=== PATIENT | male | born 1945 | race Caucasian/White ===

== ENCOUNTER 2023-09-27 10:35 | Emergency (ER) | payer BC, OTHER ==
[~2023-09-27] VITALS: Ht 167.6 cm; Wt 65.8 kg
[2023-09-27] MEDS ORDERED: AMLO-212 PO (11:59)
[2023-09-27] MEDS ORDERED: DONE10TA44 PO (11:59)
[2023-09-27] MEDS ORDERED: SENN-18 PO (11:59)
[2023-09-27] MEDS ORDERED: CHOL10005 PO (11:59)
[2023-09-27] MEDS ORDERED: FOLI1TAB27 PO (11:59)
[2023-09-27] MEDS ORDERED: OXYC5CAP18 PO (11:59)
[2023-09-27] MEDS ORDERED: UMEC1BLS IH (11:59)
[2023-09-27] MEDS ORDERED: ATOR40TA PO (11:59)
[2023-09-27] MEDS ORDERED: ASPI81TA31 PO (11:59)
[2023-09-27] MEDS ORDERED: MIRA25TA PO (11:59)
[2023-09-27] MEDS ORDERED: BISA10SU61 RC (11:59)
[2023-09-27] MEDS ORDERED: [UNRECOGNIZED DRUG - OTHER] PO (11:59)
[2023-09-27] MEDS ORDERED: PRIM250T32 PO (11:59)
[2023-09-27] MEDS ORDERED: MAG30ORA PO (11:59)
[2023-09-27] MEDS ORDERED: MELA3CAP2 PO (11:59)
[2023-09-27] MEDS ORDERED: TAMS-3 PO (11:59)
[2023-09-27] MEDS ORDERED: BUPR-53 PO (11:59)
[2023-09-27] MEDS ORDERED: ACET325C7 PO (11:59)
[2023-09-27] MEDS ORDERED: POLY17PO4 PO (11:59)
[2023-09-27] MEDS ORDERED: LOPE2CAP40 PO (11:59)
[2023-09-27] MEDS ORDERED: ALPR0.5T8 PO (11:59)
[2023-09-27] MEDS ORDERED: NICO1PAT44 TP (11:59)
[2023-09-27] MEDS ORDERED: MAGN400O6 PO (11:59)
[2023-09-27 14:26] VITALS: BP 130/70; TEMP 98; O2SAT 99
== END 2023-09-27 14:27 | disposition home or self-care (01) ==
LOC: EDBD 10:35 → ER 10:35
DX: Z04.3 Encounter for examination and observation following other accident (principal); R51.9 Headache, unspecified; M54.2 Cervicalgia; W19.XXXA Unspecified fall, initial encounter; Y93.89 Activity, other specified; Y92.89 Other specified places as the place of occurrence of the external cause; Y99.8 Other external cause status
CPT/HCPCS: 70450; 72125; A4606; A4663

== ENCOUNTER 2023-10-25 17:01 | Inpatient (IN) | payer BC ==
[~2023-10-25] VITALS: Ht 160 cm; Wt 49.9 kg
[~2023-10-25 17:01] MED LIST: ACET325C7 PO; ALPR0.5T8 PO; AMLO-212 PO; ASPI81TA31 PO; ATOR40TA PO; BISA10SU61 RC; BUPR-53 PO; CHOL10005 PO; DONE10TA44 PO; FOLI1TAB27 PO; LOPE2CAP40 PO; MAG30ORA PO; MAGN400O6 PO; MELA3CAP2 PO; MIRA25TA PO; NICO1PAT44 TP; OXYC5CAP18 PO; POLY17PO4 PO; PRIM250T32 PO; SENN-18 PO; TAMS-3 PO; UMEC1BLS IH; [UNRECOGNIZED DRUG - OTHER] PO
[2023-10-25] MEDS ORDERED: CEFTAZIDIME 2 G in IV DEXTROSE 5% 100 ML IV ONE (17:15)
[2023-10-25] MEDS ORDERED: DEXAMETHASONE SOD PHOSPHATE 4 MG INJ IV ONE (17:15)
[2023-10-25] MEDS ORDERED: VANCOMYCIN IV 1,000 MG in IV DEXTROSE 5% 250 ML IV ONE (17:15)
[2023-10-25] MEDS ORDERED: UMEC1BLS IH (17:18)
[2023-10-25] MEDS ORDERED: METH2.5T PO (17:18)
[2023-10-25] MEDS ORDERED: PRIM250T32 PO (17:18)
[2023-10-25] MEDS ORDERED: VANCOMYCIN IV 200 ML ONE (17:29)
[2023-10-25] MEDS ORDERED: CEFTAZIDIME 1 G VIAL ONE (17:29)
[2023-10-25] MEDS ORDERED: DEXAMETHASONE SOD PHOSPHATE 10 MG INJ ONE (17:29)
[2023-10-25 17:30] LABS: BASOPHILS # (AUTO) 0.1 K/UL (0.0-0.2); BASOPHILS % (AUTO) 1.3 % (0.0-2.0); EOSINOPHILS % (AUTO) 0.2 % (0.0-7.0); HEMATOCRIT 42.5 % (36.7-47.1); LYMPHOCYTES # (AUTO) 0.1 K/uL (0.8-4.8); LYMPHOCYTES % (AUTO) 1.6 % (20.5-51.5); MEAN CORPUSCULAR HGB CONC 33 g/dL (32.5-36.3); MEAN CORPUSCULAR VOLUME 99.9 fL (73.0-96.2); MONOCYTES # (AUTO) 0.4 K/uL (0.1-1.30); NEUTROPHILS # (AUTO) 7.6 K/uL (1.8-8.9); NEUTROPHILS % (AUTO) 91.9 % (38.5-71.5); PLATELET COUNT (AUTO) 260 K/uL (152-348); RED BLOOD CELL COUNT(AUTO) 4.25 MIL/uL (4.06-5.63); RED CELL DISTRIBUTION WIDTH 15.2 % (12.1-16.2); WHITE BLOOD COUNT (AUTO) 8.2 K/uL (3.6-10.2)
[2023-10-25 17:42] LABS: CARBON DIOXIDE 28 mmol/L (21-32); CHLORIDE 97 mmol/L (98-107); CREATININE 0.8 mg/dL (0.6-1.3); GLUCOSE 97 mg/dL (74-106); POTASSIUM 4.3 mmol/L (3.5-5.1); SODIUM SERUM 134 mmol/L (136-145); UREA NITROGEN, BLOOD 11 mg/dL (7-18)
[2023-10-25 17:44] LABS: CALCIUM 9.1 mg/dL (8.5-10.1)
[2023-10-25 17:52] LABS: ALANINE AMINOTRANSFERASE 14 U/L (16-63); ALBUMIN 3.7 g/dL (3.4-5.0); ALKALINE PHOSPHATASE 185 U/L (50-136); ASPARTATE AMINOTRANSFERASE 17 U/L (15-37); BILIRUBIN,DIRECT < 0.1 mg/dL (0.0-0.2); BILIRUBIN,TOTAL 0.4 mg/dL (0.2-1.0); TOTAL PROTEIN, SERUM 7.7 g/dL (6.4-8.2)
[2023-10-25 17:54] LABS: DIFFERENTIAL COMMENT 1
[2023-10-25] MEDS ORDERED: IV NORMAL SALINE 1000 ML BAG IV ONE (18:15)
[2023-10-25] MEDS ORDERED: REMEDY ESSENTIAL ZINC PASTE 113 GM TP PRN (19:45)
[2023-10-25] MEDS ORDERED: ONDANSETRON 4 MG/2 ML VIAL IV PRN (19:45)
[2023-10-25] MEDS ORDERED: MAGNESIUM HYDROXIDE 30 ML LIQUID UDC PO PRN (19:45)
[2023-10-25] MEDS: DOXYCYCLINE HYCLATE IV 100 MG in IV DEXTROSE 5% 100 ML IV SCH (21:22)
[2023-10-25 21:40] VITALS: BP 147/80; TEMP 99.2; O2SAT 97
[2023-10-25] MEDS: CEFTRIAXONE 1 G in IV DEXTROSE 5% 50 ML IV SCH (22:00)
[2023-10-26] VITALS: BP 141/82; TEMP 98.9; O2SAT 99
[2023-10-26] MEDS ORDERED: DOXYCYCLINE HYCLATE 100 MG INJ IV ONE (00:29)
[2023-10-26] MEDS ORDERED: CEFTRIAXONE 1 G VIAL ONE (00:30)
[2023-10-26] MEDS: IV D5/ 0.9% NACL 1,000 ML IV PRN (00:54)
[2023-10-26] MEDS: ENOXAPARIN SODIUM 40 MG/0.4 ML DISP.SYRIN SQ SCH ×2 (01:12→20:44)
[2023-10-26 04:00] VITALS: BP 120/69; TEMP 98.2; O2SAT 98
[2023-10-26] MEDS: PANTOPRAZOLE SODIUM 40 MG TABLET.DR PO SCH (06:40)
[2023-10-26 07:05] LABS: *BILIRUBIN,URIN NEGATIVE (NEGATIVE); *BLOOD, URINE NEGATIVE (NEGATIVE); *CLARITY,URINE CLEAR (CLEAR); *COLOR,URINE YELLOW (YELLOW); *KETONES,URINE 1+ (NEGATIVE); *PROTEIN,URINE 1+ (NEGATIVE); *UROBILINOGEN,URINE 0.2 E.U./dl (NORMAL); LEUKOCYTE ESTERASE ,URINE 1+ (NEGATIVE); NITRITE, URINE NEGATIVE (NEGATIVE); UGLUCOSE NEGATIVE (NEGATIVE)
[2023-10-26 07:22] LABS: BASOPHILS % (AUTO) 0.2 % (0.0-2.0); EOSINOPHILS % (AUTO) 0.1 % (0.0-7.0); HEMATOCRIT 39.9 % (36.7-47.1); HEMOGLOBIN 13.2 g/dL (12.5-16.3); LYMPHOCYTES # (AUTO) 0.8 K/uL (0.8-4.8); LYMPHOCYTES % (AUTO) 16.8 % (20.5-51.5); MEAN CORPUSCULAR HEMOGLOBIN 32.8 uug (23.8-33.4); MEAN CORPUSCULAR HGB CONC 33 g/dL (32.5-36.3); MEAN CORPUSCULAR VOLUME 99.2 fL (73.0-96.2); MONOCYTES # (AUTO) 0.8 K/uL (0.1-1.30); MONOCYTES % (AUTO) 15.5 % (0.0-11.0); NEUTROPHILS # (AUTO) 3.4 K/uL (1.8-8.9); NEUTROPHILS % (AUTO) 67.4 % (38.5-71.5); PLATELET COUNT (AUTO) 231 K/uL (152-348); RED BLOOD CELL COUNT(AUTO) 4.02 MIL/uL (4.06-5.63); RED CELL DISTRIBUTION WIDTH 14.6 % (12.1-16.2)
[2023-10-26 07:50] LABS: CALCIUM 8.5 mg/dL (8.5-10.1); CARBON DIOXIDE 25 mmol/L (21-32); CHLORIDE 98 mmol/L (98-107); CREATININE 0.7 mg/dL (0.6-1.3); GLUCOSE 104 mg/dL (74-106); MAGNESIUM 1.9 mg/dL (1.8-2.4); PHOSPHOROUS 2.7 mg/dL (2.5-4.9); POTASSIUM 3.7 mmol/L (3.5-5.1); SODIUM SERUM 133 mmol/L (136-145); UREA NITROGEN, BLOOD 14 mg/dL (7-18)
[2023-10-26 08:33] LABS: DIFFERENTIAL COMMENT 1
[2023-10-26] MEDS: DEXAMETHASONE SOD PHOSPHATE 4 MG INJ IV SCH (08:54)
[2023-10-26 09:02] LABS: CHOLESTEROL 130 mg/dL (<200); HDL CHOLESTEROL 61 mg/dL (40-60); TRIGLYCERIDES 55 MG/DL (30-150)
[2023-10-26] MEDS: DOXYCYCLINE HYCLATE IV 100 MG in IV DEXTROSE 5% 100 ML IV SCH ×2 (09:09→20:43)
[2023-10-26] MEDS ORDERED: REMDESIVIR (CHARGED) 200 MG in IV NORMAL SALINE 210 ML IV ONE (09:30)
[2023-10-26 09:39] LABS: SQUAMOUS EPITHELIAL CELL,UR NONE SEEN /HPF (NONE SEEN)
[2023-10-26 09:40] LABS: BACTERIA,URINE NONE SEEN /HPF (NONE SEEN); RBC,URINE 0-3 /HPF (0-3)
[2023-10-26 12:14] VITALS: BP 118/62; TEMP 97.9; O2SAT 97
[2023-10-26] MEDS: RITONAVIR PO SCH ×2 (14:28→20:44)
[2023-10-26] MEDS: NIRMATRELVIR PO SCH ×2 (14:28→20:44)
[2023-10-26 20:20] VITALS: BP 142/79; TEMP 98.4; O2SAT 98
[2023-10-26] MEDS: CEFTRIAXONE 1 G in IV DEXTROSE 5% 50 ML IV SCH (21:50)
[2023-10-27] MEDS: IV D5/ 0.9% NACL 1,000 ML IV PRN ×2 (00:45→18:18)
[2023-10-27 04:10] VITALS: BP 156/96; TEMP 97.8; O2SAT 98
[2023-10-27] MEDS: PANTOPRAZOLE SODIUM 40 MG TABLET.DR PO SCH (06:08)
[2023-10-27] MEDS ORDERED: MAG HYDROX/AL HYDROX/SIMETH 30 ML LIQUID UDC PO PRN (08:30)
[2023-10-27] MEDS: NIRMATRELVIR PO SCH ×2 (08:53→21:59)
[2023-10-27] MEDS: DOXYCYCLINE HYCLATE IV 100 MG in IV DEXTROSE 5% 100 ML IV SCH ×2 (08:53→21:59)
[2023-10-27] MEDS: RITONAVIR PO SCH ×2 (08:53→21:59)
[2023-10-27] MEDS: MIRALAX 17 GM POWD.PACK PO SCH (08:53)
[2023-10-27] MEDS: buPROPion XL 150 MG TAB.SR.24H PO SCH (08:54)
[2023-10-27] MEDS: FOLIC ACID 1 MG TABLET PO SCH (08:54)
[2023-10-27] MEDS: AMLODIPINE 5 MG TABLET PO SCH (08:55)
[2023-10-27] MEDS: DEXAMETHASONE SOD PHOSPHATE 4 MG INJ IV SCH (08:57)
[2023-10-27] MEDS: ASPIRIN 81 MG TAB.CHEW PO SCH (08:57)
[2023-10-27] MEDS ORDERED: REMDESIVIR (CHARGED) 100 MG in IV NORMAL SALINE 100 ML IV SCH (09:30)
[2023-10-27 12:00] VITALS: BP 141/84; TEMP 97.2; O2SAT 96
[2023-10-27] MEDS ORDERED: hydrALAZINE HCL 10 MG TABLET PO PRN (13:30)
[2023-10-27 16:00] VITALS: BP 125/60; TEMP 97.8; O2SAT 97
[2023-10-27 20:12] VITALS: BP 146/93; TEMP 97.9; O2SAT 97
[2023-10-27] MEDS: ENOXAPARIN SODIUM 40 MG/0.4 ML DISP.SYRIN SQ SCH (21:59)
[2023-10-27 22:39] LABS: THYROID STIMULATING HORMONE 0.909 mIU/mL (0.358-3.740)
[2023-10-27] MEDS: CEFTRIAXONE 1 G in IV DEXTROSE 5% 50 ML IV SCH (23:02)
[2023-10-28 04:42] VITALS: BP 150/88; TEMP 98.4; O2SAT 97
[2023-10-28 06:01] LABS: HEMATOCRIT 40.5 % (36.7-47.1); HEMOGLOBIN 13.5 g/dL (12.5-16.3); LYMPHOCYTES # (AUTO) 0.7 K/uL (0.8-4.8); LYMPHOCYTES % (AUTO) 2.5 % (20.5-51.5); MEAN CORPUSCULAR HEMOGLOBIN 32.7 uug (23.8-33.4); MEAN CORPUSCULAR HGB CONC 33 g/dL (32.5-36.3); MEAN CORPUSCULAR VOLUME 98.1 fL (73.0-96.2); MONOCYTES # (AUTO) 1.1 K/uL (0.1-1.30); MONOCYTES % (AUTO) 4.1 % (0.0-11.0); NEUTROPHILS % (AUTO) 93.4 % (38.5-71.5); PLATELET COUNT (AUTO) 262 K/uL (152-348); RED BLOOD CELL COUNT(AUTO) 4.13 MIL/uL (4.06-5.63); WHITE BLOOD COUNT (AUTO) 27.8 K/uL (3.6-10.2)
[2023-10-28 06:09] LABS: DIFFERENTIAL COMMENT 1
[2023-10-28] MEDS: PANTOPRAZOLE SODIUM 40 MG TABLET.DR PO SCH (06:20)
[2023-10-28 06:25] LABS: ALANINE AMINOTRANSFERASE 75 U/L (16-63); ALBUMIN 3.1 g/dL (3.4-5.0); ALKALINE PHOSPHATASE 130 U/L (50-136); ASPARTATE AMINOTRANSFERASE 103 U/L (15-37); BILIRUBIN,DIRECT 0.1 mg/dL (0.0-0.2); BILIRUBIN,TOTAL 0.3 mg/dL (0.2-1.0); CALCIUM 8.2 mg/dL (8.5-10.1); CARBON DIOXIDE 26 mmol/L (21-32); CHLORIDE 102 mmol/L (98-107); CREATININE 0.8 mg/dL (0.6-1.3); GLUCOSE 107 mg/dL (74-106); MAGNESIUM 1.9 mg/dL (1.8-2.4); PHOSPHOROUS 1.3 mg/dL (2.5-4.9); POTASSIUM 3.2 mmol/L (3.5-5.1); SODIUM SERUM 137 mmol/L (136-145); TOTAL PROTEIN, SERUM 6.6 g/dL (6.4-8.2); UREA NITROGEN, BLOOD 13 mg/dL (7-18)
[2023-10-28 06:31] LABS: C-REACTIVE PROTEIN 1.25 mg/dL (0.00-0.30)
[2023-10-28 08:00] VITALS: BP 123/72; TEMP 97.3; O2SAT 95
[2023-10-28] MEDS: MIRALAX 17 GM POWD.PACK PO SCH (09:07)
[2023-10-28] MEDS: RITONAVIR PO SCH ×2 (09:08→20:55)
[2023-10-28] MEDS: NIRMATRELVIR PO SCH ×2 (09:08→20:55)
[2023-10-28] MEDS: buPROPion XL 150 MG TAB.SR.24H PO SCH (09:09)
[2023-10-28] MEDS: FOLIC ACID 1 MG TABLET PO SCH (09:09)
[2023-10-28] MEDS: ASPIRIN 81 MG TAB.CHEW PO SCH (09:09)
[2023-10-28] MEDS: DEXAMETHASONE SOD PHOSPHATE 4 MG INJ IV SCH (09:10)
[2023-10-28] MEDS: ENSURE ENLIVE (VAN) 240 ML LIQUID PO SCH (09:11)
[2023-10-28] MEDS: AMLODIPINE 5 MG TABLET PO SCH (09:28)
[2023-10-28] MEDS: DOXYCYCLINE HYCLATE IV 100 MG in IV DEXTROSE 5% 100 ML IV SCH (09:46)
[2023-10-28] MEDS ORDERED: POTASSIUM PHOSPHATE MM 15 MMOL in IV NORMAL SALINE 250 ML IV ONE (10:00)
[2023-10-28 12:00] VITALS: BP 124/56; TEMP 97.4; O2SAT 96
[2023-10-28] MEDS: IV D5/ 0.9% NACL 1,000 ML IV PRN (18:22)
[2023-10-28 20:00] VITALS: BP 162/94; TEMP 97.7; O2SAT 96
[2023-10-28] MEDS: ENOXAPARIN SODIUM 40 MG/0.4 ML DISP.SYRIN SQ SCH (20:56)
[2023-10-29 07:02] LABS: HEMATOCRIT 42.4 % (36.7-47.1); HEMOGLOBIN 14.1 g/dL (12.5-16.3); LYMPHOCYTES # (AUTO) 0.5 K/uL (0.8-4.8); LYMPHOCYTES % (AUTO) 3.2 % (20.5-51.5); MEAN CORPUSCULAR HEMOGLOBIN 32.9 uug (23.8-33.4); MEAN CORPUSCULAR HGB CONC 33 g/dL (32.5-36.3); MEAN CORPUSCULAR VOLUME 98.8 fL (73.0-96.2); MONOCYTES # (AUTO) 0.7 K/uL (0.1-1.30); MONOCYTES % (AUTO) 4.6 % (0.0-11.0); NEUTROPHILS % (AUTO) 92.2 % (38.5-71.5); PLATELET COUNT (AUTO) 278 K/uL (152-348); RED CELL DISTRIBUTION WIDTH 15.1 % (12.1-16.2); WHITE BLOOD COUNT (AUTO) 15.2 K/uL (3.6-10.2)
[2023-10-29 07:11] LABS: DIFFERENTIAL COMMENT 1
[2023-10-29 07:22] LABS: CARBON DIOXIDE 24 mmol/L (21-32); CHLORIDE 99 mmol/L (98-107); CREATININE 0.6 mg/dL (0.6-1.3); GLUCOSE 131 mg/dL (74-106); MAGNESIUM 2.1 mg/dL (1.8-2.4); PHOSPHOROUS 1.8 mg/dL (2.5-4.9); POTASSIUM 4.4 mmol/L (3.5-5.1); SODIUM SERUM 135 mmol/L (136-145); UREA NITROGEN, BLOOD 11 mg/dL (7-18)
[2023-10-29] MEDS: MIRALAX 17 GM POWD.PACK PO SCH (08:59)
[2023-10-29] MEDS: NIRMATRELVIR PO SCH ×2 (08:59→21:40)
[2023-10-29] MEDS: RITONAVIR PO SCH ×2 (08:59→21:40)
[2023-10-29] MEDS: ACETAMINOPHEN 325 MG TABLET PO PRN ×2 (09:00→15:43)
[2023-10-29] MEDS: ASPIRIN 81 MG TAB.CHEW PO SCH (09:00)
[2023-10-29] MEDS: buPROPion XL 150 MG TAB.SR.24H PO SCH (09:00)
[2023-10-29] MEDS: AMLODIPINE 5 MG TABLET PO SCH (09:01)
[2023-10-29] MEDS: DEXAMETHASONE SOD PHOSPHATE 4 MG INJ IV SCH (09:01)
[2023-10-29] MEDS: PANTOPRAZOLE SODIUM 40 MG TABLET.DR PO SCH (09:01)
[2023-10-29] MEDS: FOLIC ACID 1 MG TABLET PO SCH (09:02)
[2023-10-29] MEDS: ENSURE ENLIVE (VAN) 240 ML LIQUID PO SCH (09:03)
[2023-10-29] MEDS: IV D5/ 0.9% NACL 1,000 ML IV PRN (11:14)
[2023-10-29 16:00] VITALS: BP 140/82; TEMP 97.6; O2SAT 95
[2023-10-29] MEDS ORDERED: NEUTRA PHOS PACKET PO SCH (16:00)
[2023-10-29 20:00] VITALS: BP 140/82; TEMP 97.6; O2SAT 97
[2023-10-29] MEDS: ENOXAPARIN SODIUM 40 MG/0.4 ML DISP.SYRIN SQ SCH (21:43)
[2023-10-30] MEDS: IV D5/ 0.9% NACL 1,000 ML IV PRN (01:20)
[2023-10-30 04:00] VITALS: BP 151/97; TEMP 97; O2SAT 97
[2023-10-30 06:19] LABS: BASOPHILS % (AUTO) 0.2 % (0.0-2.0); HEMATOCRIT 40.6 % (36.7-47.1); HEMOGLOBIN 13.6 g/dL (12.5-16.3); LYMPHOCYTES # (AUTO) 0.6 K/uL (0.8-4.8); MEAN CORPUSCULAR HEMOGLOBIN 32.8 uug (23.8-33.4); MEAN CORPUSCULAR HGB CONC 33 g/dL (32.5-36.3); MEAN CORPUSCULAR VOLUME 98.2 fL (73.0-96.2); MONOCYTES # (AUTO) 0.9 K/uL (0.1-1.30); MONOCYTES % (AUTO) 6.7 % (0.0-11.0); NEUTROPHILS # (AUTO) 11.3 K/uL (1.8-8.9); NEUTROPHILS % (AUTO) 88.1 % (38.5-71.5); PLATELET COUNT (AUTO) 248 K/uL (152-348); RED BLOOD CELL COUNT(AUTO) 4.14 MIL/uL (4.06-5.63); WHITE BLOOD COUNT (AUTO) 12.8 K/uL (3.6-10.2)
[2023-10-30 06:40] LABS: DIFFERENTIAL COMMENT 1
[2023-10-30] MEDS: PANTOPRAZOLE SODIUM 40 MG TABLET.DR PO SCH (06:51)
[2023-10-30 06:52] LABS: CALCIUM 8.5 mg/dL (8.5-10.1); CARBON DIOXIDE 27 mmol/L (21-32); CHLORIDE 100 mmol/L (98-107); CREATININE 0.7 mg/dL (0.6-1.3); GLUCOSE 102 mg/dL (74-106); MAGNESIUM 2.1 mg/dL (1.8-2.4); PHOSPHOROUS 1.9 mg/dL (2.5-4.9); POTASSIUM 3.8 mmol/L (3.5-5.1); SODIUM SERUM 134 mmol/L (136-145); UREA NITROGEN, BLOOD 12 mg/dL (7-18)
[2023-10-30 06:53] LABS: C-REACTIVE PROTEIN 0.34 mg/dL (0.00-0.30)
[2023-10-30] MEDS: MIRALAX 17 GM POWD.PACK PO SCH (08:24)
[2023-10-30] MEDS: FOLIC ACID 1 MG TABLET PO SCH (08:25)
[2023-10-30] MEDS: ASPIRIN 81 MG TAB.CHEW PO SCH (08:25)
[2023-10-30] MEDS: AMLODIPINE 5 MG TABLET PO SCH (08:25)
[2023-10-30] MEDS: buPROPion XL 150 MG TAB.SR.24H PO SCH (08:25)
[2023-10-30] MEDS: ENSURE ENLIVE (VAN) 240 ML LIQUID PO SCH (08:26)
[2023-10-30] MEDS: NIRMATRELVIR PO SCH (08:31)
[2023-10-30] MEDS: RITONAVIR PO SCH (08:31)
[2023-10-30] MEDS ORDERED: NEUTRA PHOS PACKET PO ONE (08:45)
[2023-10-30 11:34] VITALS: BP 96/74; TEMP 98; O2SAT 98
== END 2023-10-30 14:00 | DRG 177 ==
LOC: ER 17:03 → TELE3 21:01 → MEDSURG3 10-26 10:28
PROVIDERS: ADMIT Nurse Practitioner Acute Care; ATTEND Nurse Practitioner Acute Care
DX: U07.1 COVID-19 (principal); J12.82 Pneumonia due to coronavirus disease 2019; J15.9 Unspecified bacterial pneumonia; D68.59 Other primary thrombophilia; E87.1 Hypo-osmolality and hyponatremia; F02.B3 Dementia in other diseases classified elsewhere, moderate, with mood disturbance; G30.9 Alzheimer's disease, unspecified; F02.80 Dementia in other diseases classified elsewhere, unspecified severity, without behavioral disturbance, psychotic disturbance, mood disturbance, and anxiety; Z96.651 Presence of right artificial knee joint; Z99.3 Dependence on wheelchair; E78.5 Hyperlipidemia, unspecified; Z79.82 Long term (current) use of aspirin; Z79.899 Other long term (current) drug therapy; M06.9 Rheumatoid arthritis, unspecified; E83.39 Other disorders of phosphorus metabolism; M19.90 Unspecified osteoarthritis, unspecified site; L40.9 Psoriasis, unspecified; F32.A Depression, unspecified; I10 Essential (primary) hypertension; I48.91 Unspecified atrial fibrillation; N42.9 Disorder of prostate, unspecified; R79.82 Elevated C-reactive protein (CRP); E87.6 Hypokalemia
CPT/HCPCS: 36415; 70030-TC; 71045; 82747; 83605; 83735; 83921; 84100; 84443; 84484; 85014; 85025; 85730; 86140; 87040; 93005; A4606; A4663; C1758; G0378; J0696; J0713; J1100; J1650; J3370; J3490; J7040; J7042